=== PATIENT | male | born 2005 | race Caucasian/White ===

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

== ENCOUNTER 2025-01-18 19:34 | Emergency (ER) | payer OTHER, SELFPAY ==
[2025-01-18 19:37] VITALS: BP 145/88; PULSE 85; RESP 16; TEMP 36.8; O2SAT 98; BMI 24.9
[2025-01-19] MEDS: lidocaine 1% 10 ML INJ 50 ML INJECTION (00:07)
--- NOTE | 2025-01-19 00:10 | ED_ITS ---
HPI - Wound/Laceration General: Chief Complaint: Wound/Laceration Stated Complaint: lac on lip Time Seen by Provider: 01/18/25 22:37 History of Present Illness: 19 year old male patient who took an elb ow to the lip. He received a left lower lateral lip laceration. Bleeding is controlled. No tooth injury. No other head injury. He has no neck pain. He has no significant headache or vision change period no vomiting. Related Data Previous Rx's ?Medication ?Instructions ?Recorded prednisone 20 mg tablet 20 mg PO DAILY 5 days #5 tab s 10/31/22 Allergies Allergy/AdvReac Type Severity Reaction Status Date / Time No Known Allergies Allergy Verified 10/31/22 09:22 [facility] ED PFS: Medical History No pertinent past medical history Social History Smoking and tobacco/nicotine status: never used tobacco/nicotine Second hand smoke exposure: No Alcohol intake: never Substance/Drug Use: never Physical Exam Const: COMMON NORMALS: no acute distress GENERAL APPEARANCE: cooperative; not ill appearing and not frail appearing HENMT: COMMON NORMALS: normocephalic, atraumatic and Normal external nose present HEAD & SCALP: normocephalic and atraumatic FACE & SINUS: normal facial exam and face symmetric NOSE: Normal external nose present MOUTH: lip abnormal (1cm irregular laceration) Eye: COMMON NORMALS: Equal, round and reactive pupils present and EOMs intact bilaterally PUPIL: Yes Equal, round and reactive pupils present Neck/C-Spine: GENERAL: Yes trachea midline Chest: CHEST: Yes Symmetrical chest wall rise Resp: COMMON NORMALS: normal respiratory effort, No retractions and No use of accessory muscles Cardio: COMMON NORMALS: regular rate and regular rhythm RATE: regular rate RHYTHM: regular rhythm Neuro: PEYTON COMA SCALE: document GCS findings Peyton coma scale eye opening: Spontaneous Peyton coma scale verbal response: Orientated Peyton coma scale motor response: Obey commands Peyton coma scale total score: 15 SENSORY EXAM: Yes extremities (intact) Psych: COMMON NORMALS: speech normal SPEECH: Yes normal speech Procedures Laceration Laceration 1: Site: lip Side (If applicable): left Size (cm): 1 Description: flap, irregular and involves lalito border Local Anesthetic: lidocaine 1% Amount of anesthesia used (mL): 1 Pre-repair: wound explored, irrigated extensively and deep structures intact Skin layer closed with: other (prolene) Size (cm): 6-0 Number of sutures: 3 Technique: simple, interrupted Course Vital Signs: Vital signs: Vital Signs Temperature 98.2 F 01/18/25 19:37 Pulse Rate 80 01/19/25 00:22 Respiratory Rate 16 01/18/25 19:37 Blood Pressure 126/82 01/19/25 00:22 Pulse Oximetry 99 01/19/25 00:22 Oxygen Delivery Me thod Room Air 01/18/25 19:37 MDM - Wound/Laceration Medical Decision Making Laceration repaired without complication. His tetanus is up to date. He'll be discharged home. Outpatient follow up for wound check and suture removal. Return for any problems. No radiology studies performed this visit Discharge Plan Discharge Patient Disposition: Home Clinical Impression: Laceration of vermilion border of lower lip Qualifiers: Encounter type: initial encounter Qualified Code(s): S01.511A - Laceration without foreign body of lip, initial encounter Condition: Stable Prescriptions: No Action prednisone 20 mg tablet 20 mg PO DAILY 5 Days Qty: 5 0RF Discharge Orders: Discharge ED (Routine); Ordered 01/19/25 Ordered By: Vasyl Mcintyre Patient Instructions: Facial Laceration (ED), Opioid Safety, Pain Management Activity Restrictions/Additional Instructions: Wash with soap and running water. Do not soak. Return for any problems. Sutures out in 5 to 7 days. Call your doctor tomorrow for follow-up appointment and wound check. Print Language: Palauan Coding Level of Care Code ED Outpatient Admitting Clerk for Kenny Greenberg
[2025-01-19 00:22] VITALS: BP 126/82; PULSE 80; O2SAT 99
== END 2025-01-19 00:23 | disposition home or self-care (01) ==
PROVIDERS: Emergency Provider Emergency Medicine
DX: S01.511A Laceration without foreign body of lip, initial encounter (principal); W50.0XXA Accidental hit or strike by another person, initial encounter
CPT/HCPCS: 12011; 99283; J9999